=== PATIENT | female | born 1980 | race Caucasian/White ===

== ENCOUNTER 2017-08-23 21:07 | Emergency (ER) | payer BC ==
[2017-08-23 21:13] VITALS: BP 129/77
--- NOTE | 2017-08-23 22:13 | UC ---
Abdominal Pain Female HPI - HPI Summary HPI Summary: onset yesterday of flank pain on the left associated with some apparent blood in the urine. Pain disrupted sleep last night, and was primarily in the left lower abdomen, increased with lying on the left side. No pain this morning, and thinks is still seeing some blood in her urine, but not with all voids. Hx of UTI's, but her symptoms are typically dysuria. Loose stool yesterday x1, none since. No , states has had removal of Fallopian tubes at the same time as she had a defective IUD removed. Also has pain with movement and pain into the left buttock area, less consistent with renal stones. Hx of pelvic floor dysfunction which sometimes causes back pain. Ibuprofen 400mg gives some relief, last dose earlier today. + nausea, no vomiting. LMP 6 days ago, reports completely finished bleeding at this time. - History of Current Complaint Chief Complaint: UCGU Stated Complaint: ABD PAIN/ BACK PAIN Time Seen by Provider: 08/23/17 21:48 Hx Obtained From: Patient Hx Last Menstrual Period: one week ago ?: No Onset/Duration: Sudden Onset, Lasting Days - 2 Timing: Intermittent Episodes Lasting: - hours Severity Initially: Moderate Severity Currently: Moderate Pain Intensity: 5 Pain Scale Used: 0-10 Numeric Location: Other - left flank. left buttock. Radiates to: Flank Character: Aching, Colicy, Dull Aggravating Factor(s): Movement Alleviating Factor(s): OTC Analgesics Associated Signs and Symptoms: Positive: Diaphoresis - last night felt sweaty and unwell. - Risk Factors Ectopic Risk Factor: Negative Ovarian Torsion Risk Factor: Tubal Ligation Allergies/Adverse Reactions: Allergies Allergy/AdvReac Type Severity Reaction Status Date / Time No Known Allergies Allergy Verified 08/23/17 21:14 Home Medications: Home Medications Citalopram TAB* [Celexa TAB*] 1 tab PO DAILY 08/23/17 [History Confirmed ] PMH/Surg Hx/FS Hx/Imm Hx Previously Healthy: Yes Psychological History: Depression, Other - pelvic floor pain. Other Psychological History: pelvic floor pain - Surgical History Surgical History: Yes Surgery Procedure, Year, and Place: 2008 . 2002 Breast Reduction. 2005 - repair of torn tissue during v-. - Family History Known Family History: Positive: Cardiac Disease - maternal GF. Maternal GM living and healthy. Mother living and well. - Social History Occupation: Employed Full-time - teacher Lives: With Family Alcohol Use: None Substance Use Type: None Smoking Status (MU): Never Smoked Tobacco Review of Systems Constitutional: Fatigue, Other - sweats. Skin: Negative Eyes: Negative ENT: Negative Respiratory: Negative Cardiovascular: Negative Gastrointestinal: Nausea Genitourinary: Hematuria, Frequency Motor: Negative Neurovascular: Negative Musculoskeletal: Other: - left buttock pain Neurological: Negative Psychological: Negative Is Patient Immunocompromised?: No All Other Systems Reviewed And Are Negative: Yes Physical Exam Triage Information Reviewed: Yes Appearance: Ill-Appearing - looks fatigued and mildly unwell., Pain Distress - mild to moderate. Vital Signs: Initial Vital Signs Temp 98.3 F 08/23/17 21:11 Pulse 72 08/23/17 21:11 Resp 18 08/23/17 21:11 BP 129/77 08/23/17 21:11 Pulse Ox 100 08/23/17 21:11 Eyes: Positive: Conjunctiva Clear ENT: Positive: Pharynx normal Neck: Positive: Supple, Nontender, No Lymphadenopathy Respiratory: Positive: Lungs clear, Normal breath sounds Cardiovascular: Positive: RRR, No Murmur Abdomen Description: Positive: Soft, CVA Tenderness (L), Other: - mildly tender in the left mid flank area without guarding or rebound. No LLQ pain at this time. No peritoneal signs.. Negative: CVA Tenderness (R), Distended, Guarding, Hepatomegaly, Splenomegaly Bowel Sounds: Positive: Present Musculoskeletal: Positive: ROM Intact - pain with forward flexion at the waist, with tenderness in left gluteal area and SI joint area. Neurological Exam: Normal Psychological Exam: Normal Skin Exam: Normal Diagnostics - Laboratory Diagnostic Studies Completed/Ordered: 1+ hematuria negative nitrates and wbc. Abd Pain Female Course/Dx - Course Course Of Treatment: pain control overnight and observe. Clincial suggestion of kidney stones; will go to the ER for imaging if pain persists. Will strain urine in the meantime. Aware that further work up is needed. - Differential Dx/Diagnosis Provider Diagnoses: hematuria, left flank pain. Discharge - Discharge Plan Condition: Stable Disposition: HOME Patient Education Materials: Hematuria (ED) Referrals: Jennifer Quiles MD [Primary Care Provider] - Additional Instructions: It is most likely that you have a kidney stone, and many of these will pass. The concern is if a stone blocks the flow of urine from the kidney, so imaging is typically required to determine the course of treatment (waiting it out versus surgical intervention.). Use hydrocodone for sleep tonight, but if you awaken with pain or have persistent blood in the urine, please go to the ER for evaluation and imaging.
[2017-08-23] MEDS ORDERED: HYDROcodone/ACETAMIN 5-325 MG* 1 TAB PO ONE (22:16)
== END 2017-08-23 22:27 | disposition home or self-care (01) ==
LOC: UCEAST 21:07
DX: R31.9 Hematuria, unspecified (principal); R10.9 Unspecified abdominal pain; F32.9 Major depressive disorder, single episode, unspecified
CPT/HCPCS: 81003; 81025; 99212; G0463

== ENCOUNTER 2017-08-24 14:27 | Emergency (ER) | payer BC ==
[2017-08-24] MEDS ORDERED: Ondansetron TAB* 4 MG PO ONE (15:21)
[2017-08-24] MEDS ORDERED: Ketorolac INJ* 30 MG/ML 1 ML VIAL IV ONE (15:21)
[2017-08-24] MEDS ORDERED: NS 0.9% 1000 ML* 1,000 ML IV ONE (15:23)
--- NOTE | 2017-08-24 15:28 | ED ---
Abdominal Pain/Female - HPI Summary HPI Summary: Patient presents to the ED with CC of LLQ pain and L flank pain since friday. She denies history of kidney stones. Notes to associated nausea, but not vomiting. Denies fevers or sweats. Endorses chills intermittently. Pain is described as sharp and achy beginning in the LLQ and radiating to the the L flank. +gross hematuria x 3. Notes to frequency and urgency, but denies burning. Several UTI in the past and this feels different. Hx of adenomyosis and is scheduled for a hysterectomy next month. Previous abdominal surgeries includes tubes removed and . Bleeding and pain in the lower pelvic region is intermittent and also states this feels different. Was seen at yesterday and advised to come to the ED, but did not come until this afternoon. Otherwise healthy. No hx of cysts. Takes celexa daily, but denies other medications. - History of Current Complaint Chief Complaint: EDAbdPain Stated Complaint: ABD PAIN Time Seen by Provider: 08/24/17 14:43 Hx Obtained From: Patient Hx Last Menstrual Period: one week ago ?: No Onset/Duration: Sudden Onset Timing: Constant Severity Initially: Moderate Severity Currently: Moderate Pain Intensity: 5 Pain Scale Used: 0-10 Numeric Location: Discrete At: LLQ Radiates to: Flank Character: Burning, Cramping Alleviating Factor(s): Nothing Associated Signs and Symptoms: Positive: Urinary Symptoms, Nausea, Other: - hematuria - Risk Factors Ectopic Risk Factor: Maternal Age ^ 30 Ovarian Torsion Risk Factor: Reproductive Age Allergies/Adverse Reactions: Allergies Allergy/AdvReac Type Severity Reaction Status Date / Time No Known Allergies Allergy Verified 08/24/17 14:29 PMH/Surg Hx/FS Hx/Imm Hx Previously Healthy: Yes Endocrine/Hematology History: Denies: Hx Diabetes, Hx Thyroid Disease Cardiovascular History: Denies: Hx Congestive Heart Failure, Hx Hypertension Respiratory History: Denies: Hx Asthma, Hx Chronic Obstructive Pulmonary Disease (COPD) GI History: Denies: Hx Ulcer History: Denies: Hx Dialysis, Hx Renal Disease - Surgical History Surgery Procedure, Year, and Place: 2008 . 2002 Breast Reduction. 2005 - repair of torn tissue during v-. - Immunization History Hx Pertussis Vaccination: No Immunizations Up to Date: Unable to Obtain/Confirm Infectious Disease History: No Infectious Disease History: Denies: Hx Hepatitis, Hx Human Immunodeficiency Virus (HIV), Traveled Outside the [place] in Last 30 Days - Family History Known Family History: Positive: Cardiac Disease - maternal GF. Maternal GM living and healthy. Mother living and well. - Social History Occupation: Employed Full-time Lives: With Family Alcohol Use: None Hx Substance Use: No Substance Use Type: Reports: None Hx Tobacco Use: No Smoking Status (MU): Never Smoked Tobacco Review of Systems Constitutional: Negative Negative: Fever, Chills, Fatigue, Skin Diaphoresis Eyes: Negative Positive: Palpitations Respiratory: Negative Positive: Nausea Positive: see HPI, frequency, hematuria, urgency Musculoskeletal: Negative Neurological: Negative All Other Systems Reviewed And Are Negative: Yes Physical Exam Triage Information Reviewed: Yes Vital Signs On Initial Exam: Initial Vitals Temp Pulse Resp BP Pulse Ox 96.8 F 79 16 130/83 96 08/24/17 14:29 08/24/17 14:29 08/24/17 14:29 08/24/17 14:29 08/24/17 14:29 Vital Signs Reviewed: Yes Appearance: Positive: Well-Appearing, Well-Nourished Skin: Positive: Warm, Skin Color Reflects Adequate Perfusion Head/Face: Positive: Normal Head/Face Inspection Eyes: Positive: EOMI, AMALIA, Conjunctiva Clear Neck: Positive: Supple, No Lymphadenopathy Respiratory/Lung Sounds: Positive: Clear to Auscultation, Breath Sounds Present Cardiovascular: Positive: RRR, Pulses are Symmetrical in both Upper and Lower Extremities Abdomen Description: Positive: Nontender, Soft, Other: - no CVA tenderness Bowel Sounds: Positive: Present Musculoskeletal: Positive: Normal, Strength/ROM Intact Neurological: Positive: Speech Normal Psychiatric: Positive: Normal AVPU Assessment: Alert - [place] Coma Scale Coma Scale Total: 15 Diagnostics - Vital Signs Vital Signs Temp Pulse Resp BP Pulse Ox 08/24/17 14:29 96.8 F 79 16 130/83 96 - Laboratory Result Diagrams: 08/24/17 15:25 08/24/17 15:25 Lab Statement: Any lab studies that have been ordered have been reviewed, and results considered in the medical decision making process. Abdominal Pain Fem Course/Dx - Course Course Of Treatment: During the course of treatment, patient is given fluids, toradol and zofran. Ct abd/pelvis: renal cysts but otherwise normal. UA shows no evidence of UTI. Discussed results with patient. Patient feeling improved on second examination. Likely caused from adenomyosis history for which she is having surgery in 1 month. Patient agrees to follow up with urology reagarding renal cysts and OBGYN as scheduled. - Diagnoses Differential Diagnosis: Positive: Constipation, Renal Colic Provider Diagnoses: LLQ pain Discharge - Discharge Plan Condition: Stable Disposition: HOME Patient Education Materials: Kidney Cyst (ED) Referrals: Jennifer Quiles MD [Primary Care Provider] - Additional Instructions: As discussed, I do not think the renal cysts are a cause for your abdominal pain If you develop any worsening symptoms, please return to the ED Follow up with your PCP within 1 weeks time As discussed, no other findings were seen on CT scan. Lab work obtained and within normal limits.
[2017-08-24 15:45] LABS: Hematocrit 39 % (35-47); Hemoglobin 13.5 g/dl (12.0-16.0); Mean Corpuscular HGB Conc 35 g/dl (31-36); Mean Corpuscular Hemoglobin 30 pg (27-31); Mean Corpuscular Volume 87 fL (80-97); Mean Platelet Volume 7 um3 (7.4-10.4); Red Blood Count 4.51 10^6/ul (4.0-5.4); Red Cell Distribution Width 13 % (10.5-15); White Blood Count 5.1 10^3/ul (3.5-10.8)
--- NOTE | 2017-08-24 16:01 | RAD ---
INDICATION: Left flank pain and left lower quadrant pain. COMPARISON: Comparison is made with a prior CT of the abdomen and pelvis from August 17, 2015. TECHNIQUE: A CT scan of the abdomen and pelvis was performed without intravenous or oral contrast. Contiguous axial sections were obtained from the lung bases through the symphysis pubis. Images were reconstructed in the coronal and sagittal planes. FINDINGS: The lung bases are clear. No pleural effusion is present. The liver and spleen are mildly enlarged and unchanged from the prior study. No significant focal abnormality is seen on this noncontrast study. No calcified gallstones are noted. The pancreas appears to be within normal limits. The adrenal glands appear to be within normal limits. No renal calculi or hydronephrosis is seen. No ureteral or bladder calculi are noted. There are multiple bilateral renal cysts which have increased slightly in size from the prior study. The largest cyst is located in the upper pole of the right kidney and measures 10.6 cm in size. The aorta is normal in caliber without significant calcific plaque. There is a retroaortic left renal vein. No significant enlarged retroperitoneal lymph nodes are seen. The stomach, small and large bowel appear nondistended. The appendix is within normal limits. There are few scattered diverticuli within the colon. There is no evidence for diverticulitis or colitis. There is a small periumbilical hernia containing fat. The uterus is anteverted and mildly enlarged. No free intraperitoneal air or fluid is seen. No significant focal osseous abnormality is seen. IMPRESSION: 1. NO EVIDENCE FOR ACUTE FINDING OR CAUSE FOR THE PATIENT'S ABDOMINAL PAIN IS SEEN. 2. MILD HEPATOSPLENOMEGALY, UNCHANGED. 3. MULTIPLE MODERATE TO LARGE BILATERAL RENAL CYSTS SLIGHTLY INCREASED IN SIZE.
[2017-08-24 16:03] LABS: ALT 15 U/L (7-52); AST 17 U/L (13-39); Alkaline Phosphatase 71 U/L (34-104); Anion Gap 7 mmol/L (2-11); BUN/Creatinine Ratio 10.8 (8-20); Blood Urea Nitrogen 9 mg/dL (6-24); C Reactive Protein 10.27 mg/L (< 5.00); CO2 Carbon Dioxide 27 mmol/L (22-32); Chloride 103 mmol/L (101-111); Creatine Kinase 56 U/L (10-223); EGFR African American 98.9 (>60); EGFR Non-African American 76.9 (>60); Globulin 2.9 g/dL (2-4); Glucose 148 mg/dL (70-100); Lipase 18 U/L (11.0-82.0); Potassium 3.4 mmol/L (3.5-5.0); Sodium 137 mmol/L (133-145); Total Protein 6.9 g/dL (6.4-8.9)
[2017-08-24 18:19] LABS: Urine Bacteria Absent (Absent); Urine Bilirubin Negative (Negative); Urine Glucose Negative (Negative); Urine Nitrite Negative (Negative)
[2017-08-24 19:15] VITALS: BP 126/57
== END 2017-08-24 19:14 | disposition home or self-care (01) ==
LOC: ED 14:27
DX: R10.32 Left lower quadrant pain (principal)
CPT/HCPCS: 36415; 74176; 80053; 81003; 81015; 82550; 83605; 83690; 83735; 84702; 85025; 86140; A9270-GY; J1885

== ENCOUNTER 2017-09-19 06:02 | Observation (INO) | payer BC ==
[~2017-09-19 06:02] MED LIST: Buffered Lidocaine 0.9% SYRIN* 5 ML/SYR SYRINGE INTRADERM ONE; Famotidine IV* 10 MG/ML 2 ML (20 mg) IV ONE; Scopolamine 1.5 mg* PATCH TRANSDERM SCH
[2017-09-19] MEDS ORDERED: Famotidine IV* 10 MG/ML 2 ML (20 mg) ONE (06:19)
[2017-09-19] MEDS ORDERED: Scopolamine 1.5 mg* PATCH ONE (06:19)
[2017-09-19] MEDS ORDERED: Buffered Lidocaine 0.9% SYRIN* 5 ML/SYR SYRINGE ONE (06:20)
[2017-09-19] MEDS ORDERED: ceFAZolin 2 GM PREMIX (*) 2 GM/50 ML BAG IVPB ONE (06:20)
[2017-09-19] MEDS ORDERED: ceFAZolin 1 GM in Dextrose (*) 1 GM/50 ML BAG IVPB ONE (06:20)
[2017-09-19] MEDS ORDERED: Lidocaine 1% MPF wEPI 200,000* 30 ML SDV ONE (07:31)
[2017-09-19] MEDS ORDERED: Bupivacaine 0.25% SDV* 30 ML ONE (07:32)
[2017-09-19] MEDS ORDERED: fentaNYL* 50 MCG/ML 2 ML VIAL (100 MCG VIAL) ONE ×2 (07:43→08:04)
[2017-09-19] MEDS ORDERED: Midazolam* 1 MG/ML 2 ML VIAL (2 MG) ONE (07:43)
[2017-09-19] MEDS ORDERED: Rocuronium* 10 MG/ML VIAL ONE (07:43)
[2017-09-19] MEDS ORDERED: Bupivacaine 0.5% SDV PF* 30 ML VIAL ONE (08:17)
[2017-09-19] MEDS ORDERED: Dexamethasone IV* 4 MG/ML 1 ML (4 MG) ONE (08:24)
[2017-09-19] MEDS ORDERED: Ondansetron INJ* 2 MG/ML VIAL ONE ×2 (08:24→14:32)
[2017-09-19] MEDS ORDERED: Succinylcholine* 20 MG/ML 10 ML VIAL ONE (08:24)
[2017-09-19] MEDS ORDERED: Ketorolac INJ* 30 MG/ML 1 ML VIAL ONE (08:24)
[2017-09-19] MEDS ORDERED: DiMENhydriNATE IV* 50 MG/ML VIAL ONE (08:24)
[2017-09-19] MEDS ORDERED: Propofol* 10 MG/ML 20 ML BTL IV PUSH ONE (08:24)
[2017-09-19] MEDS ORDERED: Lidocaine 2% PF * 5 ML VIAL ONE (08:25)
[2017-09-19] MEDS ORDERED: DiMENhydriNATE IV* 50 MG/ML VIAL IV PUSH PRN (08:33)
[2017-09-19] MEDS ORDERED: Acetaminophen IV 1GM/100ML * 1,000 MG/100 ML VIAL IVPB ONE (08:33)
[2017-09-19] MEDS ORDERED: HYDROmorphone INJ* 1 MG/ML CARPUJECT SYRINGE IV PRN (08:33)
[2017-09-19] MEDS ORDERED: HYDROmorphone INJ* 1 MG/ML CARPUJECT SYRINGE ONE (09:43)
[2017-09-19] MEDS: Ibuprofen TAB* 600 MG PO PRN ×2 (12:01→18:05)
[2017-09-19] MEDS ORDERED: Ondansetron INJ* 2 MG/ML VIAL IV PRN (14:37)
[2017-09-19] MEDS: oxyCODONE/Acetamin 5/325 MG* TAB PO PRN ×2 (15:29→21:32)
[2017-09-20] MEDS: oxyCODONE/Acetamin 5/325 MG* TAB PO PRN ×2 (03:32→10:04)
[2017-09-20 05:10] LABS: Hematocrit 35 % (35-47); Hemoglobin 11.7 g/dl (12.0-16.0); Mean Corpuscular HGB Conc 34 g/dl (31-36); Mean Corpuscular Hemoglobin 30 pg (27-31); Mean Corpuscular Volume 88 fL (80-97); Mean Platelet Volume 8 um3 (7.4-10.4); Red Cell Distribution Width 14 % (10.5-15); White Blood Count 9.7 10^3/ul (3.5-10.8)
[2017-09-20 07:53] VITALS: BP 110/55
[2017-09-20] MEDS: Ibuprofen TAB* 600 MG PO PRN (08:05)
[2017-09-20] MEDS ORDERED: Citalopram TAB* 20 MG PO SCH (09:00)
[2017-09-22] MEDS ORDERED: Scopolamine PATCH Remove* 1 NOTE MISC PATCH OFF SCH (06:00)
--- NOTE | 2017-09-24 13:59 | OP ---
OPERATIVE REPORT: DATE OF OPERATION: 09/19/17 DATE OF : 76 SURGEON: Kevin Herzog MD MANAGER CAREER: Markus Crawley MD ANESTHESIA: General anesthetic with endotracheal intubation. PRE-OP DIAGNOSIS: Severe dysmenorrhea, menorrhagia and dyspareunia. POST-OP DIAGNOSIS: Severe dysmenorrhea, menorrhagia, and dyspareunia, pending pathology. OPERATIVE PROCEDURE: Laparoscopic supracervical hysterectomy with a single site port. ESTIMATED BLOOD LOSS: Less than 10 cc. IV FLUIDS: She received 1600 cc of IV crystalloid fluid. URINE OUTPUT: 800 cc of clear urine. FINDINGS: Surgical findings revealed normal ovaries bilaterally. It was also apparent that the anthony ent had bilateral salpingectomies and the uterus was noted to be globular with no apparent lesion, to p normal size with a normal bowel and normal bladder. DESCRIPTION OF PROCEDURE: The patient was taken to the operating room where she was identified. She was placed on the operating table where a general anesthetic with endotracheal intubation was obtain ed without difficulty. She was then placed in the dorsal lithotomy position, prepped and draped in n ormal sterile fashion. Attention was then brought on to the patient's perineum where the bladder was catheterized with a Carlisle catheter and drained of clear urine. A side-view speculum was inserted int o the patient's vagina. The cervix was identified, it was then grasped with a single-tooth tenaculum . The uterus was then sounded, it was noted to be in anteverted position. After sounding, a ClearVi ew uterine manipulator was introduced into the cervix. The balloon in the manipulator was insufflated with sterile water. Single-tooth tenaculum and speculum were then removed. Attention was then brou ght on to the patient's abdomen, where a 2-cm infraumbilical skin incision was made with a knife. In cision was then extended to the fascia. The fascia was then grasped with Garth clamps and brought o ut to the incision and incised transversely. The fascia was then further extended transversely for a total of about a 3-cm incision. Through this incision, we then proceeded to introduce a single site operative laparoscopy surgical port and through the port gel, we introduced 3 ports, 1 for the camer a and 2 for operative instrument. The patient's abdomen was then insufflated with CO2 gas and a 30- degree 5-mm laparoscope was inserted into the port, and we took a survey of the patient's pelvic leon jessica, which revealed findings as noted above. At this point, we proceeded to grasp the round ligament s bilaterally. These were grasped with a LigaSure. They were coagulated and transected bilaterally. We then proceeded with a LigaSure device to open the anterior leaf of the broad ligament inferiorly just above the bladder reflection. This was done with both sharp and blunt dissection. The bladder flap was then mobilized inferiorly using the LigaSure device. The anterior leaf of the broad ligamen t was exposed. We then proceeded to grasp the uteroovarian ligament, this was done bilaterally with a LigaSure, coagulated and transected. The posterior leaf of the broad ligament was then opened. We identified the uterine arteries bilaterally. These were grasped with a LigaSure device and were coa gulated intermittently and then transected with successive coagulation of the uterine artery lateral to the cervix. Once we were able to mobilize the bladder away from the cervix and we identified the uterocervical junction, we then proceeded to introduce a SupraLoop. The SupraLoop was then wrapped a round the uterocervical junction. The SupraLoop was then set at 110 pure- cut setting and the uterus was then transected from the cervix using electrocautery. The SupraLoop was then removed from the p atient's abdomen. The uterus was then mobilized away from the cervix and the cervix was noted to be completely hemostatic. At this point, we removed the gel portion of the single site port and through the incision, we introduced a Endobag. The GelPort was then replaced. The abdomen was then insuffl ated with CO2 gas. We then placed the uterus within the bag, removed the GelPort and then removed th e bag with the uterus inside through the umbilical incision. At this point, a guard was placed at th e umbilical incision to protect the edges of the incision from sharp dissection which we proceeded to remove the uterus by morcellating it with sharp dissection. The entirety of the uterus was removed through morcellation. The specimen sent to pathology. The bag was then removed from the patient's a bdomen. We then proceeded to place the GelPort back with a single site port. The abdomen was then i nsufflated with CO2 gas, we took a second look laparoscopically. All the pedicles were noted to be c ompletely hemostatic. At this point, we proceeded to irrigate the patient's abdomen with normal sali ne. The normal saline was then suctioned. There was good hemostasis noted at the surgical site. We then proceeded to remove all the instruments from the patient's abdomen as well as the single site po rt. Gas from the abdomen was removed through the umbilical incision. The fascia on the umbilicus was closed using 0 Polysorb suture in a running fashion and skin was closed with 4-0 Monocryl stitch. Keira oro note that prior to using the SupraLoop to decapitate the uterus from the cervix, we had removed the uterine manipulator from within the uterus. The patient tolerated the procedure well. Sponge, lap, needle, counts were correct x2. She was then transferred to recovery room area in stable condit ion. [id number]/[facility] #: [id number]
== END 2017-09-20 11:52 | disposition home or self-care (01) ==
LOC: OR 06:02 → SSU 11:28
PROVIDERS: ADMIT Obstetrics & Gynecology; ATTEND Obstetrics & Gynecology
PROC: 0UT94ZL Resection of Uterus, Supracervical, Percutaneous Endoscopic Approach (ICD-10-PCS; principal; 2017-09-19 07:45)
DX: N94.12 Deep dyspareunia (principal); N92.0 Excessive and frequent menstruation with regular cycle; N94.5 Secondary dysmenorrhea
CPT/HCPCS: 36415; 85025; 88307; 96374; A9270-GY; G0378; J0330; J0690; J1100; J1170; J1240; J1885; J2001; J2250; J2405; J2704; J3010

== ENCOUNTER 2018-06-09 16:36 | Emergency (ER) | payer BC ==
--- NOTE | 2018-06-09 18:37 | UC ---
Hand/Wrist HPI - HPI Summary HPI Summary: 37 yo female c/o L 4th finger swelling. Thinks sx started approx 2 weeks ago, but didn't pay much attention d/t other issues ( in family), started to notice it worsening a couple days ago. Last night ring was very tight. Today, couldn't remove the ring. No p/d/w. Unknown inciting event, but thinks may have hit hand against something a couple weeks ago. No other injury or trauma. - History Of Current Complaint Chief Complaint: UCUpperExtremity Stated Complaint: FINGER SWOLLEN BENEATH RING Time Seen by Provider: 06/09/18 18:20 Hx Obtained From: Patient Hx Last Menstrual Period: hysterectomy Pain Intensity: 4 - Allergies/Home Medications Allergies/Adverse Reactions: Allergies Allergy/AdvReac Type Severity Reaction Status Date / Time No Known Allergies Allergy Verified 09/19/17 06:29 PMH/Surg Hx/FS Hx/Imm Hx Previously Healthy: Yes - Surgical History Surgical History: Yes Surgery Procedure, Year, and Place: 2008 . 2002 Breast Reduction. 2005 - repair of torn tissue during v-. 2017-hysterectomy - Family History Known Family History: Positive: Cardiac Disease - maternal GF. Maternal GM living and healthy. Mother living and well. - Social History Alcohol Use: None Substance Use Type: None Smoking Status (MU): Never Smoked Tobacco Review of Systems Constitutional: Negative Skin: Other - see hpi Eyes: Negative ENT: Negative Respiratory: Negative Cardiovascular: Negative Gastrointestinal: Negative Genitourinary: Negative Motor: Other - see hpi Neurovascular: Other - see hpi Musculoskeletal: Other: - see hpi Neurological: Other - see hpi Psychological: Negative Is Patient Immunocompromised?: No All Other Systems Reviewed And Are Negative: Yes Physical Exam Triage Information Reviewed: Yes Appearance: Well-Nourished Vital Signs: Initial Vital Signs Temp 97.0 F 06/09/18 16:47 Pulse 90 06/09/18 16:47 Resp 18 06/09/18 16:47 BP 117/78 06/09/18 16:47 Pulse Ox 99 06/09/18 16:47 Vital Signs Reviewed: Yes Eye Exam: Normal - grossly normal ENT Exam: Normal - grossly normal Neck exam: Normal - no c/o Respiratory Exam: Normal - no tachypnea, no dypsnea, normal resp rate Cardiovascular Exam: Normal - nondiaphoretic. HR normal. Abdominal Exam: Normal - no c/o abd pain, sitting up. Musculoskeletal Exam: Other - L 4th finger swollen. Ring removed at triage by RN. Deep indentation at site of ring, skin fragile but intact. Tender prox ip joint, also 4th mc region tender. Distal sens LT present, cr is good. Neurological Exam: Normal - grossly nonfocal, see above Psychological Exam: Normal - looks tired, but nad. conversing easily and appropriately Skin Exam: Other - see above re finger no visible or reported rash. Hand/Wrist Course/Dx - Course Course Of Treatment: Ring removed by RN. Xray - nad, prelim reading (d/w pt). No new problems. Declines rx ibuprofen. Will f/u with PCP per routine. - Differential Dx/Diagnosis Provider Diagnoses: L finger swelling, ring removal Discharge - Sign-Out/Discharge Documenting (check all that apply): Patient Departure All imaging exams completed and their final reports reviewed: No - Discharge Plan Condition: Improved Disposition: HOME Patient Education Materials: Swollen Joint (ED) Referrals: Jennifer Quiles MD [Primary Care Provider] - Additional Instructions: Follow up with primary care physician, per routine. Seek medical attention for worse or new problems. - Billing Disposition and Condition Condition: IMPROVED Disposition: Home
[2018-06-09] MEDS ORDERED: Ibuprofen TAB* 600 MG PO ONE (18:38)
[2018-06-09 19:22] VITALS: BP 118/75
--- NOTE | 2018-06-10 07:30 | RAD ---
INDICATION: Left hand injury. TECHNIQUE: 4 views of the left hand were obtained. FINDINGS: There is soft tissue swelling present in the second through fourth fingers. The bones are normal alignment. No fracture is seen. Joint spaces appear maintained. IMPRESSION: SOFT TISSUE SWELLING, NO FRACTURE IS SEEN. R0
--- NOTE | 2018-06-10 09:34 | UC ---
- Progress Note Progress Note: XR report: IMPRESSION: SOFT TISSUE SWELLING, NO FRACTURE IS SEEN. No change in plan of care Discharge - Sign-Out/Discharge Documenting (check all that apply): Post-Discharge Follow Up All imaging exams completed and their final reports reviewed: Yes - Discharge Plan Condition: Improved Disposition: HOME Patient Education Materials: Swollen Joint (ED) Referrals: Jennifer Quiles MD [Primary Care Provider] - Additional Instructions: Follow up with primary care physician, per routine. Seek medical attention for worse or new problems. - Billing Disposition and Condition Condition: IMPROVED Disposition: Home
== END 2018-06-09 19:25 | disposition home or self-care (01) ==
LOC: UCEAST 16:36
DX: M79.89 Other specified soft tissue disorders (principal)
CPT/HCPCS: 99201; A9270-GY; G0463

== ENCOUNTER 2018-09-03 15:46 | Emergency (ER) | payer BC ==
[2018-09-03 15:59] VITALS: BP 136/89
--- NOTE | 2018-09-03 16:14 | UC ---
Throat Pain/Nasal Scott HPI - HPI Summary HPI Summary: 37 yo female presents with cough and sore throat for the last 2 weeks. Over the last 3-4 days her cough has become more productive and she has developed sinus pain/pressure/congestion as well. She has been taking an otc tylenol cold medicine with no relief. She does not smoke. Denies fever, chills, SOB, chest pain, n/v. - History of Current Complaint Chief Complaint: UCRespiratory Stated Complaint: SORE THROAT, AND COUGH Time Seen by Provider: 09/03/18 16:14 Hx Obtained From: Patient Hx Last Menstrual Period: hysterectomy Onset/Duration: Gradual Onset Severity: Mild Pain Intensity: 4 Pain Scale Used: 0-10 Numeric Cough: Productive - Allergies/Home Medications Allergies/Adverse Reactions: Allergies Allergy/AdvReac Type Severity Reaction Status Date / Time No Known Allergies Allergy Verified 09/03/18 16:00 PMH/Surg Hx/FS Hx/Imm Hx Psychological History: Anxiety, Depression - Surgical History Surgical History: Yes Surgery Procedure, Year, and Place: 2008 . 2002 Breast Reduction. 2005 - repair of torn tissue during v-. 2017-hysterectomy - Family History Known Family History: Positive: Cardiac Disease - maternal GF. Maternal GM living and healthy. Mother living and well. - Social History Occupation: Employed Full-time Lives: With Family Alcohol Use: Rare Substance Use Type: None Smoking Status (MU): Never Smoked Tobacco Review of Systems All Other Systems Reviewed And Are Negative: Yes Constitutional: Positive: Negative Skin: Positive: Negative Eyes: Positive: Negative ENT: Positive: Sore Throat, Nasal Discharge, Sinus Congestion, Sinus Pain/ Tenderness Respiratory: Positive: Cough Cardiovascular: Positive: Negative Gastrointestinal: Positive: Negative Neurological: Positive: Negative Psychological: Positive: Negative Physical Exam - Summary Physical Exam Summary: GENERAL: NAD. WDWN. No pain distress. SKIN: No rashes, sores, lesions, or open wounds. HEENT: Head: AT/NC Eyes: EOM intact. Conjunctiva clear without inflammation or discharge. Ears: Hearing grossly normal. TMs intact, no bulging, erythema, or edema. Nose: Nasal mucosa mildly swollen and erythematous with yellow/ clear discharge. TTP maxillary and frontal sinus. Positive post nasal drip Throat: Posterior oropharynx without exudates, erythema, or tonsillar enlargement. Uvula midline. NECK: Supple. Nontender. No lymphadenopathy. CHEST: Scant wheezing. CTAB. No r/r. No accessory muscle use. Breathing comfortably and in no distress. CV: RRR. Without m/r/g. Pulses intact. NEURO: Alert. PSYCH: Age appropriate behavior. Triage Information Reviewed: Yes Vital Signs: Initial Vital Signs Temp 97.9 F 09/03/18 15:57 Pulse 78 09/03/18 15:57 Resp 16 09/03/18 15:57 BP 136/89 09/03/18 15:57 Pulse Ox 96 09/03/18 15:57 Vital Signs Reviewed: Yes Throat Pain/Nasal Course/Dx - Course Course Of Treatment: Sinusitis. Bronchitis. - Differential Dx/Diagnosis Provider Diagnosis: Sinusitis, Bronchitis Discharge - Sign-Out/Discharge Documenting (check all that apply): Patient Departure All imaging exams completed and their final reports reviewed: No Studies - Discharge Plan Condition: Stable Disposition: HOME Prescriptions: Amoxicillin PO (*) [Amoxicillin 875 MG (*)] 875 mg PO BID #14 tab Benzonatate CAP* [Tessalon 100 MG CAP*] 100 mg PO TID PRN #21 cap PRN Reason: Cough Codeine Phosphate/Guaifenesin [Guaifen-Codeine 100-10 mg/5 ml] 5 ml PO BEDTIME PRN #35 ml MDD 5mL PRN Reason: Cough Fluconazole 150 MG TAB* [Diflucan 150 MG TAB*] 150 mg PO ONCE #1 tablet Patient Education Materials: Sinusitis (ED), Acute Bronchitis (ED) Referrals: Jennifer Quiles MD [Primary Care Provider] - Additional Instructions: If you develop a fever, shortness of breath, chest pain, new or worsening symptoms - please call your PCP or go to the ED. Your blood pressure was high at todays visit. Please see your primary provider within 4 weeks for recheck and re-evaluation. - Billing Disposition and Condition Condition: STABLE Disposition: Home
== END 2018-09-03 16:30 | disposition home or self-care (01) ==
LOC: UCEAST 15:46
DX: J32.9 Chronic sinusitis, unspecified (principal); J40 Bronchitis, not specified as acute or chronic
CPT/HCPCS: 99212; G0463